=== PATIENT | female | born 1990 | race Caucasian/White ===

== ENCOUNTER 2016-06-02 00:31 | Emergency (ER) | payer BC ==
[2016-06-02 00:45] VITALS: TEMP 98.5
[2016-06-02] MEDS ORDERED: SODIUM CHLORIDE 0.9% 1,000 ML IV ONE ×2 (03:03→04:28)
[2016-06-02] MEDS ORDERED: ONDANSETRON 4 MG/2 ML VIAL IVP STA ×2 (03:03→04:28)
[2016-06-02 03:32] LABS: Basophils # (A) 0.1 k/uL (0-0.2); Basophils % (A) 1 %; CH 32.5; CHCM 36.5; Eosinophils # (A) 0.1 k/uL (0-0.7); Eosinophils % (A) 1 %; HCT 45.3 % (34.0-46.0); HDW 2.48; Luc # (Auto) 0.19; Luc % (Auto) 2; Lymphocytes # (A) 3.3 k/uL (1.0-4.8); Lymphocytes % (A) 30 %; MCH 31.6 pg (25.0-35.0); MCHC 35.4 g/dL (31.0-37.0); MCV 89.3 fL (80.0-100.0); Mean Platelet Volume 6.3; Monocytes # (A) 0.7 k/uL (0-1.0); Monocytes % (A) 7 %; Neutrophils # (A) 6.6 k/uL (1.3-7.7); Neutrophils % (A) 60 %; RBC 5.08 m/uL (3.80-5.40); RDW 12.7 % (11.5-15.5); WBC 10.9 k/uL (3.8-10.6); WBC (Perox) 11.26
[2016-06-02 03:41] LABS: Anion Gap 19 mmol/L; Blood Urea Nitrogen 14 mg/dL (7-17); Carbon Dioxide 23 mmol/L (22-30); Chloride 98 mmol/L (98-107); Glucose 98 mg/dL (74-99); Non-African American GFR(MDRD) >60 (>60 ml/min/1.73 sqM); Potassium 3.6 mmol/L (3.5-5.1); Sodium 140 mmol/L (137-145)
[2016-06-02 03:42] LABS: Appearance,Urine Clear (Clear); Bilirubin,Urine 1+ (Negative); Calcium Oxalate Crystals,Urine Few /hpf; Glucose,Urine (UA) Negative (Negative); Ketones,Urine 2+ (Negative); Leukocyte Esterase,Urine Trace (Negative); Mucus,Urine Many /hpf; Nitrite,Urine Negative (Negative); Particle Count 9570; Protein,Urine 1+ (Negative); RBC,Urine 21 /hpf (0-5); Specific Gravity,Urine 1.023 (1.001-1.035); Squamous Epithelial Cell,Urine 1 /hpf (0-4); UA Billing (MACRO vs. MICRO) MICRO; Urobilinogen,Urine <2.0 mg/dL (<2.0)
[2016-06-02] MEDS ORDERED: MAG HYDROX/AL HYDROX/SIMETH 30 ML, HYOSCYAMINE ELIXIR 10 ML, CIMETIDINE HCL 300 MG, LID... PO STA ×4 (04:29)
[2016-06-02] MEDS ORDERED: LORazepam 2 MG/ML SYRINGE IV STA (04:48)
--- NOTE | 2016-06-02 06:36 | ED ---
Nausea/Vomiting/Diarrhea HPI - General Chief complaint: Nausea/Vomiting/Diarrhea Stated complaint: Vomiting/Diarrhea Time Seen by Provider: 06/02/16 02:19 Source: patient Mode of arrival: ambulatory Limitations: no limitations - Related Data Home Medications Medication Instructions Recorded Confirmed Unable To Assess [Unable to Assess] 06/02/16 06/02/16 Allergies Allergy/AdvReac Type Severity Reaction Status Date / Time No Known Allergies Allergy Verified 06/02/16 00:45 Review of Systems ROS Statement: Those systems with pertinent positive or pertinent negative responses have been documented in the HPI. ROS Other: All systems not noted in ROS Statement are negative. Past Medical History Additional Past Medical History / Comment(s): polycystic ovaries History of Any Multi-Drug Resistant Organisms: C-DIFF Date of last positivie culture/infection: 2014 MDRO Source:: stool Additional Past Surgical History / Comment(s): abdominal Past Psychological History: Anxiety, Depression Smoking Status: Never smoker Past Alcohol Use History: None Reported Past Drug Use History: Marijuana General Exam Limitations: no limitations Course Vital Signs 06/02/16 00:39 Temperature 98.5 F Pulse Rate 123 H Respiratory 20 Rate Blood Pressure 141/92 O2 Sat by Pulse 97 Oximetry Medical Decision Making - Lab Data Result diagrams: 06/02/16 03:23 06/02/16 03:23 Lab Results 06/02/16 06/02/16 06/02/16 Range/Units 03:23 03:23 03:23 WBC 10.9 H (3.8-10.6) k/uL RBC 5.08 (3.80-5.40) m/uL Hgb 16.0 (11.4-16.0) gm/dL Hct 45.3 (34.0-46.0) % MCV 89.3 (80.0-100.0) fL MCH 31.6 (25.0-35.0) pg MCHC 35.4 (31.0-37.0) g/dL RDW 12.7 (11.5-15.5) % Plt Count 395 (150-450) k/uL Neutrophils % 60 % Lymphocytes % 30 % Monocytes % 7 % Eosinophils % 1 % Basophils % 1 % Neutrophils # 6.6 (1.3-7.7) k/uL Lymphocytes # 3.3 (1.0-4.8) k/uL Monocytes # 0.7 (0-1.0) k/uL Eosinophils # 0.1 (0-0.7) k/uL Basophils # 0.1 (0-0.2) k/uL Sodium 140 (137-145) mmol/L Potassium 3.6 (3.5-5.1) mmol/L Chloride 98 (98-107) mmol/L Carbon Dioxide 23 (22-30) mmol/L Anion Gap 19 mmol/L BUN 14 (7-17) mg/dL Creatinine 0.80 (0.52-1.04) mg/dL Est GFR (MDRD) Af Amer >60 (>60 ml/min/1.73 sqM) Est GFR (MDRD) Non-Af >60 (>60 ml/min/1.73 sqM) Glucose 98 (74-99) mg/dL Calcium 11.0 H (8.4-10.2) mg/dL Urine Color Urine Appearance (Clear) Urine pH (5.0-8.0) Ur Specific [place] (1.001-1.035) Urine Protein (Negative) Urine Glucose (UA) (Negative) Urine Ketones (Negative) Urine Blood (Negative) Urine Nitrite (Negative) Urine Bilirubin (Negative) Urine Urobilinogen (<2.0) mg/dL Ur Leukocyte Esterase (Negative) Urine RBC (0-5) /hpf Ur Squamous Epith Cells (0-4) /hpf Calcium Oxalate Crystal (None) /hpf Urine Mucus (None) /hpf Urine HCG, Qual Not Detected (Not Detectd) 06/02/16 Range/Units 03:23 WBC (3.8-10.6) k/uL RBC (3.80-5.40) m/uL Hgb (11.4-16.0) gm/dL Hct (34.0-46.0) % MCV (80.0-100.0) fL MCH (25.0-35.0) pg MCHC (31.0-37.0) g/dL RDW (11.5-15.5) % Plt Count (150-450) k/uL Neutrophils % % Lymphocytes % % Monocytes % % Eosinophils % % Basophils % % Neutrophils # (1.3-7.7) k/uL Lymphocytes # (1.0-4.8) k/uL Monocytes # (0-1.0) k/uL Eosinophils # (0-0.7) k/uL Basophils # (0-0.2) k/uL Sodium (137-145) mmol/L Potassium (3.5-5.1) mmol/L Chloride (98-107) mmol/L Carbon Dioxide (22-30) mmol/L Anion Gap mmol/L BUN (7-17) mg/dL Creatinine (0.52-1.04) mg/dL Est GFR (MDRD) Af Amer (>60 ml/min/1.73 sqM) Est GFR (MDRD) Non-Af (>60 ml/min/1.73 sqM) Glucose (74-99) mg/dL Calcium (8.4-10.2) mg/dL Urine Color Yellow Urine Appearance Clear (Clear) Urine pH 6.0 (5.0-8.0) Ur Specific [place] 1.023 (1.001-1.035) Urine Protein 1+ H (Negative) Urine Glucose (UA) Negative (Negative) Urine Ketones 2+ H (Negative) Urine Blood Moderate H (Negative) Urine Nitrite Negative (Negative) Urine Bilirubin 1+ H (Negative) Urine Urobilinogen <2.0 (<2.0) mg/dL Ur Leukocyte Esterase Trace H (Negative) Urine RBC 21 H (0-5) /hpf Ur Squamous Epith Cells 1 (0-4) /hpf Calcium Oxalate Crystal Few H (None) /hpf Urine Mucus Many H (None) /hpf Urine HCG, Qual (Not Detectd) Disposition Clinical Impression: Constipation, Cyclic vomiting syndrome Disposition: HOME SELF-CARE Condition: Good Instructions: Acute Nausea and Vomiting (ED), Constipation (ED) Referrals: Nile Ferreira MD [Primary Care Provider] - 1-2 days
[2016-06-02 06:47] VITALS: BP 126/65; PULSE 92; RESP 18
== END 2016-06-02 06:47 | disposition home or self-care (01) ==
LOC: EC 00:31
DX: K59.00 Constipation, unspecified (principal); G43.A0 Cyclical vomiting, in migraine, not intractable
CPT/HCPCS: 99284; 96374; 96375; 96376; 96361 ×2; 36415; 80048; 85025; 81001; 81025; J2060; J2405

== ENCOUNTER 2016-10-21 16:41 | Emergency (ER) | payer BC ==
[2016-10-21 16:49] VITALS: RESP 18
[2016-10-21] MEDS ORDERED: ONDANSETRON 4 MG/2 ML VIAL IVP STA (17:17)
[2016-10-21] MEDS ORDERED: HYDROmorphone 1 MG/ML 1 ML SYRINGE IVP STA (17:17)
--- NOTE | 2016-10-21 17:35 | ED ---
Fall HPI - General Chief Complaint: Fall Stated Complaint: head injury Time Seen by Provider: 10/21/16 17:09 Source: patient, EMS Mode of arrival: wheelchair - History of Present Illness Initial Comments: This 26-year-old white female presents with a complaint of a fall 2 days ago. She apparently was drinking and hiking and fell approximately 20 feet. She is unsure if she lost consciousness. She did obtain a mild laceration to her forehead. She also hit her right elbow. She is complaining of some mild left back pain. She did not present initially as the pain was not very severe. She states that today she developed an increase in her headache and had some swelling to her for head region. She has had some mild photophobia as well. She denies any other neurologic complaints such as no problems with ambulation, speech, vision, or localized weakness. She denies any amnesia to the event. She denies any possibility of . No other complaints or modifying factors. She is only taken Tylenol for it thus far without relief. She has had some mild nausea as well. She relates that her last tetanus shot was within 5 years. - Related Data Home Medications Medication Instructions Recorded Confirmed Ethinyl Estradiol/Drospirenone 1 tab PO HS 10/21/16 10/21/16 [Betzy 28 Tablet] FLUoxetine HCL [PROzac] 80 mg PO HS 10/21/16 10/21/16 Phentermine HCl [Adipex-P] 37.5 mg PO HS 10/21/16 10/21/16 metFORMIN HCL [Glucophage] 500 mg PO HS 10/21/16 10/21/16 Previous Rx's Medication Instructions Recorded traMADol HCl [Ultram] 50 - 100 mg PO Q6H PRN #20 tab 10/21/16 Allergies Allergy/AdvReac Type Severity Reaction Status Date / Time No Known Allergies Allergy Verified 10/21/16 17:07 Review of Systems ROS Statement: Those systems with pertinent positive or pertinent negative responses have been documented in the HPI. ROS Other: All systems not noted in ROS Statement are negative. Past Medical History Additional Past Medical History / Comment(s): polycystic ovaries History of Any Multi-Drug Resistant Organisms: C-DIFF Date of last positivie culture/infection: 2014 MDRO Source:: stool Additional Past Surgical History / Comment(s): abdominal Past Psychological History: Anxiety, Depression Smoking Status: Never smoker Past Alcohol Use History: Occasional Past Drug Use History: None Reported General Exam - General Exam Comments Initial Comments: GENERAL: The patient is well nourished and well hydrated. VITAL SIGNS: Heart rate, blood pressure, respiratory rate reviewed as recorded in nurse's notes. EYES: Pupils are round and reactive. Extraocular movements are intact. No conjunctival / lid redness or swelling. ENT: There is a very minimal vertical 1 cm laceration to the inferior portion of the mid forehead. There is some mild associated swelling and tenderness. There is some tenderness over the nose. Airway is patent. Throat is clear. NECK: Nontender. No swelling or evidence of injury. No subcutaneous emphysema. Trachea is midline. No thyroid mass. HEART: Regular rate and rhythm. Good peripheral pulses. LUNGS/CHEST: Breath sounds clear and equal bilaterally. No rales, rhonchi, or wheezes. No ecchymosis, subcutaneous emphysema, or tenderness. ABDOMEN: Abdomen soft without tenderness. No palpable masses or organomegaly. No peritoneal signs. No abdominal wall swelling or ecchymosis. EXTREMITIES: There is tenderness to the left paralumbar musculature. There is some tenderness noted to the right distal humerus into the right elbow. There is excellent range of motion of the right elbow without any difficulty. Strength is intact. Normal muscle tone and function. NEUROLOGIC: Sensation is grossly intact. Cranial nerve exam reveals face is symmetrical, tongue is midline, speech is clear. SKIN: No other abrasions or ecchymosis is noted. No induration or masses noted. PSYCHIATRIC: Alert and oriented. Appropriate behavior and judgment. Limitations: no limitations Course Vital Signs 10/21/16 10/21/16 16:42 18:12 Temperature 97.8 F Pulse Rate 94 86 Respiratory 18 18 Rate Blood Pressure 123/91 123/62 O2 Sat by Pulse 99 97 Oximetry Medical Decision Making - Medical Decision Making The patient was seen and examined. All diagnostics were reviewed. A IV was established and she received some Dilaudid as well as some Zofran intravenously. She is feeling much improved on recheck. The computed tomography scan of the facial bones and brain are negative for any acute processes. The x-rays of the right elbow, lumbar spine, AP pelvis and chest x- ray do not show any acute process per radiology. Overall, it is felt as though she is stable for discharge home. Her forehead wound appears to be healing quite well and is very minimal. She is counseled regarding her diagnoses in detail and leaves in no significant distress. Disposition Clinical Impression: Head injury, Facial contusion, Facial laceration, Fall, Contusion of right elbow, Lumbar strain Disposition: HOME SELF-CARE Condition: Good Instructions: Head Injury (ED), Contusion in Adults (ED), Low Back Strain (ED) Prescriptions: traMADol HCl [Ultram] 50 - 100 mg PO Q6H PRN #20 tab PRN Reason: Pain Referrals: Nile Ferreira MD [Primary Care Provider] - 1-2 days Time of Disposition: 18:49
--- NOTE | 2016-10-21 18:17 | CT ---
EXAMINATION TYPE: CT brain wo con DATE OF EXAM: 10/21/2016 COMPARISON: NONE HISTORY: Fall 2 days ago. Right posterior head injury and frontal injuries. Bilateral eye swelling. CT DLP: 999.80 mGycm. Automated Exposure Control for Dose Reduction was Utilized. TECHNIQUE: CT scan of the head is performed without contrast. FINDINGS: There is no acute intracranial hemorrhage, mass effect, or midline shift identified. The ventricles and sulci are within normal limits in size. The globes are intact and the visualized sin uses are clear. IMPRESSION: No acute intracranial hemorrhage, mass effect, or midline shift is seen.
--- NOTE | 2016-10-21 18:20 | CT ---
EXAMINATION TYPE: CT facial bones wo con DATE OF EXAM: 10/21/2016 COMPARISON: NONE HISTORY: Fall 2 days ago. Right posterior head injury and frontal injuries. Bilateral eye swelling. CT DLP: 570.80 mGycm. Automated exposure control for dose reduction was used. TECHNIQUE: CT scan of the sinuses is performed without contrast, axial images are obtained, coronal r eformatted images are also reviewed. FINDINGS: There is no fracture or malalignment. The temporal mandibular joints are congruent. The orb its and paranasal sinuses are intact. IMPRESSION: NO ACUTE PROCESS.
--- NOTE | 2016-10-21 18:36 | XR ---
PROCEDURE: XR elbow complete RT DATE AND TIME: 10/21/2016 6:05 PM REFERRING PHYSICIAN: Lokesh De La Cruz DO CLINICAL INDICATION: PHH, Pain TECHNIQUE: 3 views. COMPARISON: None FINDINGS: There is no fracture or malalignment. The soft tissues are unremarkable. IMPRESSION: NO ACUTE PROCESS.
--- NOTE | 2016-10-21 18:37 | XR ---
PROCEDURE: XR pelvis AP view DATE AND TIME: 10/21/2016 6:05 PM REFERRING PHYSICIAN: Lokesh De La Cruz DO CLINICAL INDICATION: PHH, Pain TECHNIQUE: Department protocol. COMPARISON: None FINDINGS: There is no fracture or malalignment. The soft tissues are unremarkable. IMPRESSION: NO ACUTE PROCESS.
--- NOTE | 2016-10-21 18:38 | XR ---
EXAMINATION TYPE: XR chest 2V DATE OF EXAM: 10/21/2016 COMPARISON: NONE HISTORY: Pain after injury TECHNIQUE: Frontal and lateral views of the chest are obtained. FINDINGS: There is no focal air space opacity, pleural effusion, or pneumothorax seen. The cardiac silhouette size is within normal limits. The osseous structures are intact. IMPRESSION: No acute cardiopulmonary process.
--- NOTE | 2016-10-21 18:39 | XR ---
PROCEDURE: XR lumbar spine 3V DATE AND TIME: 10/21/2016 6:05 PM REFERRING PHYSICIAN: Lokesh De La Cruz DO CLINICAL INDICATION: PHH, Pain TECHNIQUE: 3 views COMPARISON: None FINDINGS: There is no fracture or malalignment. The soft tissues are unremarkable. IMPRESSION: NO ACUTE PROCESS.
[2016-10-21 19:05] VITALS: BP 120/59; PULSE 74; TEMP 98.8
== END 2016-10-21 19:05 | disposition home or self-care (01) ==
LOC: EC 16:41
DX: S01.81XA Laceration without foreign body of other part of head, initial encounter (principal); S39.012A Strain of muscle, fascia and tendon of lower back, initial encounter; S00.83XA Contusion of other part of head, initial encounter; S50.01XA Contusion of right elbow, initial encounter; F41.9 Anxiety disorder, unspecified; F32.9 Major depressive disorder, single episode, unspecified; Z79.3 Long term (current) use of hormonal contraceptives; Z79.84 Long term (current) use of oral hypoglycemic drugs; Z79.899 Other long term (current) drug therapy; W15.XXXA Fall from cliff, initial encounter
CPT/HCPCS: 99284; 96374; 96375; 71020; 72100; 72170; 73080; 70486; 70450; J2405; J1170